=== PATIENT | female | born 1930 | race Caucasian/White ===

== ENCOUNTER → 2017-02-27 | Outpatient (CLI) | payer OTHER | LOC: FIMAGING 12:37 | DX: Z12.31 Encounter for screening mammogram for malignant neoplasm of breast (principal) | CPT/HCPCS: G0202 ==

== ENCOUNTER → 2017-03-31 | Outpatient (CLI) | payer OTHER | LOC: BHFA 14:00 | PROVIDERS: ATTEND Internal Medicine Cardiovascular Disease | DX: I51.7 Cardiomegaly (principal); I10 Essential (primary) hypertension; R60.0 Localized edema ==

== ENCOUNTER → 2018-06-29 | Outpatient (CLI) | payer OTHER | LOC: FIMAGING 13:13 | PROVIDERS: ATTEND Internal Medicine | DX: Z12.31 Encounter for screening mammogram for malignant neoplasm of breast (principal); Z13.820 Encounter for screening for osteoporosis; M85.89 Other specified disorders of bone density and structure, multiple sites ==

== ENCOUNTER 2019-03-31 20:36 | Emergency (ER) | payer OTHER ==
--- NOTE | 2019-03-31 21:28 | EDPHY ---
H & P Time Seen by Provider: 03/31/19 21:13 HPI/ROS: CHIEF COMPLAINT: Cough and some shortness of breath HISTORY OF PRESENT ILLNESS: This is a cough with some whitish sputum since Thursday, has shortness of breath but is able to speak in full sentences. Able to walk from the car to the ER but has shortness of breath with exertion. Didn' t take her lasix today. She is on Eliquis for atrial fibrillation. Did not miss any recent doses. Symptoms are mild to moderate, she is interested in a chest X-ray to know if she has pneumonia. No associated fevers or chills. REVIEW OF SYSTEMS: Eye: no change in vision ENT: no sore throat Cardiac: no chest pain or syncope Pulmonary: See the HPI Abdomen: no vomiting, diarrhea, abdominal pain Musculoskeletal: No leg swelling Skin: no rash Neuro: no headache Constitutional: no fever : no urinary symptoms A comprehensive 10 point review of systems is otherwise negative aside from elements mentioned in the history of present illness. PAST MEDICAL HISTORY: Includes tonsillectomy, Parkinson's, hypertension, diabetes, atrial fibrillation Social history: Here with daughters General Appearance: Alert and conversant, cooperative. Eyes: No scleral icterus. ENT, Mouth: Normal mucous membranes. No angioedema. Respiratory: Right lower lung crackles, speaks in full sentences. Cardiovascular: Regular rate and rhythm. Gastrointestinal: Abdomen is soft and non tender. Neurological: Alert, face symmetric, normal motor and sensory in extremities. Skin: Warm and dry, no rashes. Musculoskeletal: No peripheral edema. No calf tenderness. Psychiatric: Not agitated. Emergency Department course/MDM: Differential diagnosis considered for shortness of breath including but not limited to pulmonary infectious process, COPD, asthma, pulmonary embolus and congestive heart failure. Venous thromboembolism unlikely on Eliquis. Chest x-ray discussed with patient and consented. 2157: Chest x-ray shows heart failure discussed with radiologist, EKG and labs ordered. 2299: Long discussion with the patient and her daughters. She is adamant about going home against my medical advice. I recommended admission with saturation 89-90, elevated BNP, diagnosis of pneumonia. She understands risks of leaving including but not limited to worsening dyspnea or hypoxia, cardiac arrest or . She has never been hospitalized before and does not want start now. Has capacity to make decisions regarding her care. Patient also tells me that she has a normal oxygen saturation of around 90% in the office. She will follow up with her lead caregiver tomorrow. She will restart her Lasix which she did not take today. Azithromycin, albuterol MDI, Tessalon Reneees, restart Lasix. Smoking Status: Never smoked Constitutional: Initial Vital Signs Temperature (C) 36.6 C 03/31/19 20:38 Heart Rate 60 03/31/19 20:38 Respiratory Rate 20 03/31/19 20:38 Blood Pressure 170/69 H 03/31/19 20:38 O2 Sat (%) 90 L 03/31/19 20:38 O2 Delivery Mode Room Air Allergies/Adverse Reactions: epinephrine Allergy (Verified 03/31/19 20:42) Home Medications: Medication Instructions Recorded Carbidopa/Levodopa [Carbidopa-Levo 05/14/16 25-100 mg Odt] Furosemide [Lasix 20 MG (RX)] 05/14/16 Lisinopril 05/14/16 Lovastatin 05/14/16 Metformin HCl [Metformin 1000 mg] 05/14/16 Pramipexole Di-HCl [Pramipexole 05/14/16 Dihydrochloride] Atenolol 03/31/19 Azithromycin 250 mg PO DAILY #4 tablet 03/31/19 Benzonatate [Tessalon Pearles (RX)] 100 mg PO Q8 PRN #15 cap 03/31/19 Eliquis 03/31/19 Medical Decision Making - Diagnostics EKG Interpretation: 12-lead EKG interpreted by me; official reading is in computer system. My interpretation is sinus rhythm rate 65 no ischemic changes. Imaging Results: Imaging Impressions Chest X-Ray 03/31/19 21:26 Impression: 1. Left lower lung pneumonia 2. Early CHF Results discussed with Dr. Nova at 9:53 pm. Imaging: Discussed imaging studies w/ scallop shucker Radiologist Differential Diagnosis: Differential considered including but not limited to pulmonary embolism, pneumonia, pneumothorax, CHF, bronchitis, bronchospasm - Data Points Laboratory Results: Laboratory Results 03/31/19 22:10 03/31/19 22:10 03/31/19 03/31/19 03/31/19 22:21 22:10 22:10 WBC 7.79 10^3/uL 10^3/uL (3.80-9.50) RBC 3.82 10^6/uL L 10^6/uL (4.18-5.33) Hgb 11.2 g/dL L g/dL (12.6-16.3) Hct 35.1 % L % (38.0-47.0) MCV 91.9 fL fL (81.5-99.8) MCH 29.3 pg pg (27.9-34.1) MCHC 31.9 g/dL L g/dL (32.4-36.7) RDW 14.6 % % (11.5-15.2) Plt Count 212 10^3/uL 10^3/uL (150-400) MPV 10.3 fL fL (8.7-11.7) Neut % (Auto) 76.6 % H % (39.3-74.2) Lymph % (Auto) 12.8 % L % (15.0-45.0) Nicholas % (Auto) 8.0 % % (4.5-13.0) Eos % (Auto) 1.7 % % (0.6-7.6) Baso % (Auto) 0.4 % % (0.3-1.7) Nucleat RBC Rel Count 0.0 % % (0.0-0.2) Absolute Neuts (auto) 5.97 10^3/uL 10^3/uL (1.70-6.50) Absolute Lymphs (auto) 1.00 10^3/uL 10^3/uL (1.00-3.00) Absolute Monos (auto) 0.62 10^3/uL 10^3/uL (0.30-0.80) Absolute Eos (auto) 0.13 10^3/uL 10^3/uL (0.03-0.40) Absolute Basos (auto) 0.03 10^3/uL 10^3/uL (0.02-0.10) Absolute Nucleated RBC 0.00 10^3/uL 10^3/uL (0-0.01) Immature Gran % 0.5 % % (0.0-1.1) Immature Gran # 0.04 10^3/uL 10^3/uL (0.00-0.10) Sodium 135 mEq/L mEq/L (135-145) Potassium 4.4 mEq/L mEq/L (3.5-5.2) Chloride 103 mEq/L mEq/L (97-110) Carbon Dioxide 23 mEq/l mEq/l (22-31) Anion Gap 9 mEq/L mEq/L (6-14) BUN 39 mg/dL H mg/dL (7-23) Creatinine 1.3 mg/dL H mg/dL (0.6-1.0) Estimated GFR 39 Glucose 132 mg/dL H mg/dL (70-100) Calcium 9.0 mg/dL mg/dL (8.5-10.4) POC Troponin I 0.01 ng/mL ng/mL (0.00-0.08) NT-Pro-B Natriuret Pep 3140 pg/mL H pg/mL (0-450) Medications Given: Discontinued Medications Albuterol Sulfate (Proventil Inh Prepack) 1 mdi TAKEHOME EDNOW ONE Stop: 03/31/19 23:04 Last Admin: 03/31/19 23:17 Dose: 1 mdi Azithromycin (Zithromax) 500 mg PO EDNOW ONE PRN Reason: Protocol Stop: 03/31/19 23:04 Last Admin: 03/31/19 23:13 Dose: 500 mg Furosemide (Lasix Injection) 20 mg IVP EDNOW ONE Stop: 03/31/19 23:06 Last Admin: 03/31/19 23:20 Dose: 20 mg Point of Care Test Results: Chemistry 03/31/19 22:21 POC Troponin I 0.01 ng/mL ng/mL (0.00-0.08) Departure - Departure Disposition: Home, Routine, Self-Care Clinical Impression: Pneumonia Qualifiers: Pneumonia type: due to unspecified organism Laterality: left Lung location: lower lobe of lung Qualified Code(s): J18.1 - Lobar pneumonia, unspecified organism Acute exacerbation of congestive heart failure Qualifiers: Heart failure type: unspecified Qualified Code(s): I50.9 - Heart failure, unspecified Condition: Good Instructions: Albuterol (By breathing), Bacterial Pneumonia (ED) Additional Instructions: Inhaler 2 puffs every 4-6 hours as needed. Please follow-up with your lead caregiver tomorrow as scheduled. Restart your Lasix tonight as prescribed. Referrals: Shilpa Villasenor MD [Primary Care Provider] - 3-4 days, if not improved Mariposa,Jin, MD [Medical Doctor] - As per Instructions Prescriptions: Azithromycin 250 mg PO DAILY #4 tablet Benzonatate [Tessalon Pearles (RX)] 100 mg PO Q8 PRN #15 cap PRN Reason: Cough, Moderate
--- NOTE | 2019-03-31 22:11 | CPEKG ---
Test Reason : OPEN Blood Pressure : / mmHG Vent. Rate : 065 BPM Atrial Rate : 064 BPM P-R Int : 135 ms QRS Dur : 080 ms QT Int : 426 ms P-R-T Axes : 029 029 036 degrees QTc Int : 443 ms Sinus rhythm Confirmed by Josh Valle ([id number]) on 03/31/2019 10:11:15 PM Referred By: JOSH VALLE Confirmed By:Josh Valle
[2019-03-31 22:25] LABS: PLATELET COUNT 212 10^3/uL (150-400)
[2019-03-31] MEDS ORDERED: AZITHROMYCIN 250 MG TAB PO ONE (23:03)
[2019-03-31] MEDS ORDERED: ALBUTEROL INH PREPACK MDI TAKEHOME ONE (23:03)
[2019-03-31 23:05] VITALS: BP 166/104
[2019-03-31] MEDS ORDERED: FUROSEMIDE 40 MG/4 ML VIAL IVP ONE (23:05)
== END 2019-03-31 23:28 | disposition home or self-care (01) ==
DX: J18.1 Lobar pneumonia, unspecified organism (principal); I50.9 Heart failure, unspecified
CPT/HCPCS: 71046; 93005; 96374; 99285; J1940; 84484-ER

== ENCOUNTER → 2019-04-18 | Outpatient (CLI) | payer OTHER | LOC: BMCIMAGING 14:29 | PROVIDERS: ATTEND Internal Medicine | DX: Z09 Encounter for follow-up examination after completed treatment for conditions other than malignant neoplasm (principal); R91.1 Solitary pulmonary nodule; Z87.09 Personal history of other diseases of the respiratory system ==

== ENCOUNTER → 2019-04-19 | Outpatient (CLI) | payer OTHER | END | disposition still patient (30) | LOC: BHFA 15:30 | PROVIDERS: ATTEND Internal Medicine Cardiovascular Disease | DX: R06.02 Shortness of breath (principal) ==

== ENCOUNTER → 2019-04-27 | Outpatient (CLI) | payer OTHER | LOC: FIMAGING 10:45 ==

== ENCOUNTER → 2019-05-24 | Outpatient (CLI) | payer OTHER | LOC: FIMAGING 13:00 ==